=== PATIENT | male | born 1945 | race Caucasian/White ===

== ENCOUNTER → 2022-09-17 | Outpatient (CLI) | payer MEDICARE, BC, OTHER | LOC: M PLARAD 10:41 | PROVIDERS: ATTEND Psychiatry & Neurology Neurology | DX: R25.1 Tremor, unspecified (principal) ==

== ENCOUNTER 2023-10-13 18:24 | Inpatient (IN) | payer MEDICARE, BC, OTHER ==
[~2023-10-13] VITALS: Ht 172.7 cm; Wt 94.0 kg
[2023-10-13 23:05] VITALS: BP 174/96; TEMP 97.4; O2SAT 98
[2023-10-13] MEDS ORDERED: LEVALBUTEROL 1.25MG 0.5ML CONCENTRATE NEB NEB PRN (23:25)
[2023-10-13] MEDS ORDERED: ACETAMINOPHEN TAB 650MG DOSE (2X325MG) PO PRN (23:25)
[2023-10-13] MEDS ORDERED: KETOROLAC 30 MG/ML 1ML VIAL IV SCH (23:25)
[2023-10-13] MEDS ORDERED: PERCOCET 5MG/325MG TAB PO PRN ×2 (23:25)
[2023-10-13] MEDS ORDERED: BISACODYL 10MG SUPP PR PRN (23:25)
[2023-10-13] MEDS ORDERED: ONDANSETRON 4MG 2ML VIAL IV PRN (23:25)
[2023-10-13] MEDS ORDERED: HEPARIN SOD (PORCINE) 5000UNITS/ML 1ML VIAL/SYRINGE SC SCH (23:25)
[2023-10-13 23:35] VITALS: BP 187/124; O2SAT 97
[2023-10-13 23:45] VITALS: BP 195/100; O2SAT 97
[2023-10-14] VITALS (15 sets, daily range): BP systolic 126–203; BP diastolic 71–116; TEMP 97.3–98.4; O2SAT 94–98
[2023-10-14 00:18] LABS: BASO # 0.1 10^3/uL (0.0-0.2); BASO % 0.9 % (0.0-1.0); EOS # 0.2 10^3/uL (0.0-0.5); EOS % 3.1 % (0.0-3.0); HEMATOCRIT 39.2 % (42.0-52.0); LYMPH # 1.5 10^3/uL (1.5-5.0); MEAN CORPUSCULAR HEMOGLOBIN 28.7 pg (27.0-33.0); MEAN CORPUSCULAR HGB CONC 33.2 g/dl (32.0-36.5); MEAN CORPUSCULAR VOLUME 86.5 fl (80.0-96.0); MONO # 0.7 10^3/uL (0.0-0.8); MONO % 9.9 % (2.0-8.0); NEUTROPHILS # 4.3 10^3/uL (1.5-8.5); NEUTROPHILS % 62.9 % (36.0-66.0); PLATELET COUNT, AUTOMATED 207 10^3/uL (150-450); RED BLOOD COUNT 4.53 10^6/uL (4.30-6.10); WHITE BLOOD COUNT 6.9 10^3/uL (4.0-10.0)
[2023-10-14 00:22] LABS: ALBUMIN 3.5 G/DL (3.2-5.2); ALKALINE PHOSPHATASE 66 U/L (46-116); ALT/SGPT < 9 U/L (7.0-40); AST/SGOT 12 U/L (<34); BILIRUBIN,TOTAL 0.6 MG/DL (0.3-1.2); BLOOD UREA NITROGEN 9 MG/DL (9-23); CALCIUM LEVEL 8.7 MG/DL (8.3-10.6); CARBON DIOXIDE LEVEL 29 MMOL/L (20-31); CHLORIDE LEVEL 106 MMOL/L (98-107); GLOMERULAR FILTRATION RATE > 60.0 (>42); GLUCOSE, FASTING 108 MG/DL (74-106); POTASSIUM SERUM 3.8 MMOL/L (3.5-5.1); SODIUM LEVEL 139 MMOL/L (136-145); TOTAL PROTEIN 6.3 G/DL (5.7-8.2)
[2023-10-14] MEDS: LEVALBUTEROL 1.25MG 0.5ML CONCENTRATE NEB NEB SCH (01:04)
[2023-10-14] MEDS: KCL 20MEQ IN D5/NS 1000ML 1,000 ML IV SCH (01:06)
[2023-10-14] MEDS ORDERED: FERR325T3 PO (01:11)
[2023-10-14] MEDS ORDERED: RANO500T2 PO (01:11)
[2023-10-14] MEDS ORDERED: AMIO200T49 PO (01:11)
[2023-10-14] MEDS ORDERED: TAMS1CAP17 PO (01:11)
[2023-10-14] MEDS ORDERED: ELIQ5TAB PO (01:11)
[2023-10-14] MEDS ORDERED: BENA1TAB24 PO (01:11)
[2023-10-14 04:59] LABS: BASO % 0.5 % (0.0-1.0); EOS # 0.2 10^3/uL (0.0-0.5); EOS % 3.4 % (0.0-3.0); HEMATOCRIT 37.9 % (42.0-52.0); HEMOGLOBIN 12.7 g/dl (13.5-17.5); LYMPH # 1.3 10^3/uL (1.5-5.0); MEAN CORPUSCULAR HEMOGLOBIN 28.5 pg (27.0-33.0); MEAN CORPUSCULAR HGB CONC 33.5 g/dl (32.0-36.5); MEAN CORPUSCULAR VOLUME 85.2 fl (80.0-96.0); MONO # 0.7 10^3/uL (0.0-0.8); MONO % 11.7 % (2.0-8.0); NEUTROPHILS # 3.9 10^3/uL (1.5-8.5); NEUTROPHILS % 63.2 % (36.0-66.0); PLATELET COUNT, AUTOMATED 181 10^3/uL (150-450); RED BLOOD COUNT 4.45 10^6/uL (4.30-6.10); WHITE BLOOD COUNT 6.2 10^3/uL (4.0-10.0)
[2023-10-14 05:18] LABS: BLOOD UREA NITROGEN 10 MG/DL (9-23); CALCIUM LEVEL 8.6 MG/DL (8.3-10.6); CARBON DIOXIDE LEVEL 31 MMOL/L (20-31); CHLORIDE LEVEL 106 MMOL/L (98-107); CREATININE FOR GFR 0.89 MG/DL (0.70-1.30); GLOMERULAR FILTRATION RATE > 60.0 (>42); GLUCOSE, FASTING 115 MG/DL (74-106); POTASSIUM SERUM 3.8 MMOL/L (3.5-5.1); SODIUM LEVEL 140 MMOL/L (136-145)
[2023-10-14 05:40] LABS: ABG BASE EXCESS 3.2 (-2.0-2.0); ABG HCO3 27.8 MMOL/L (22.0-26.0); ABG O2 SATURATION 93.9 % (95.0-99.0); ABG PARTIAL PRESSURE CO2 42.8 mmHg (35.0-45.0); ABG PARTIAL PRESSURE O2 69.1 mmHg (75.0-100.0); ABG STANDARD HCO3 27.2 MMOL/L. (22.0-26.0); ABG TOTAL CO2 29.1 MMOL/L (23.0-31.0); ABG pH (ARTERIAL) 7.431 UNITS (7.350-7.450)
[2023-10-14] MEDS ORDERED: BENA-8 PO (06:37)
[2023-10-14] MEDS ORDERED: EZET10TA58 PO (06:37)
[2023-10-14] MEDS ORDERED: GABA-282 PO (06:37)
[2023-10-14] MEDS ORDERED: ASPI-615 PO (06:37)
[2023-10-14] MEDS ORDERED: VITA100093 PO (06:37)
[2023-10-14] MEDS ORDERED: CARV12.5 PO (06:37)
[2023-10-14] MEDS ORDERED: PROP20TA72 PO (06:37)
[2023-10-14] MEDS ORDERED: NAPR-885 PO (06:37)
[2023-10-14] MEDS ORDERED: OMEP-173 PO (06:37)
[2023-10-14] MEDS ORDERED: HOME MED LIST COMPLETE! XX SCH (06:45)
[2023-10-14] MEDS: CARVedilol 12.5 MG TAB PO SCH (08:31)
[2023-10-14] MEDS: APIXABAN 5 MG TAB (ELIQUIS) PO SCH (08:31)
[2023-10-14] MEDS: TAMSULOSIN 0.4 MG CAP PO SCH (08:37)
[2023-10-14] MEDS: EZETIMIBE 10MG TABLET (ZETIA) PO SCH (08:38)
[2023-10-14] MEDS: PANTOPRAZOLE 40MG TAB (PROTONIX) PO SCH (08:38)
[2023-10-14] MEDS: BENAZEPRIL 20 MG TAB PO SCH (08:39)
[2023-10-14] MEDS: GABAPENTIN 300 MG CAP PO SCH (08:39)
[2023-10-14] MEDS: ASPIRIN 81MG ENTERIC TABLET PO SCH (08:39)
[2023-10-14] MEDS: MOM 30ML SUSPENSION UDC PO SCH (08:40)
[2023-10-14] MEDS: RANOLAZINE 500MG ER TAB PO SCH (08:40)
[2023-10-14] MEDS: PROPRANOLOL 20 MG TAB PO SCH (08:40)
[2023-10-14] MEDS: DOCUSATE SODIUM 100MG CAPSULE PO SCH (08:40)
[2023-10-14] MEDS ORDERED: AMIODARONE 200 MG TAB (PACERONE) PO SCH (09:00)
[2023-10-14] MEDS ORDERED: BENAZEPRIL 5MG TAB PO SCH (09:00)
[2023-10-14 11:29] LABS: FREE T4 1.12 NG/DL (0.89-1.76); THYROID STIMULATING HORMONE 6.687 uIU/ML (0.55-4.78)
[2023-10-14] MEDS: COLCHICINE 0.6 MG TABLET PO ONE (11:43)
[2023-10-14 11:54] LABS: RHEUMATOID FACTOR QUANT 8.9 IU/ML (<14)
[2023-10-14 14:03] LABS: FREE T3 2.5 PG/ML (2.3-4.2)
[2023-10-14] MEDS: amLODIPine 5 MG TAB PO ONE (16:27)
[2023-10-15] VITALS (7 sets, daily range): BP systolic 124–149; BP diastolic 71–84; TEMP 96.8–98.5; O2SAT 95–96
[2023-10-15 05:48] LABS: BASO # 0.1 10^3/uL (0.0-0.2); BASO % 0.7 % (0.0-1.0); EOS # 0.2 10^3/uL (0.0-0.5); EOS % 2.2 % (0.0-3.0); HEMATOCRIT 37.5 % (42.0-52.0); HEMOGLOBIN 12.5 g/dl (13.5-17.5); LYMPH # 1.1 10^3/uL (1.5-5.0); LYMPH % 14.8 % (24.0-44.0); MEAN CORPUSCULAR HGB CONC 33.3 g/dl (32.0-36.5); MEAN CORPUSCULAR VOLUME 83.9 fl (80.0-96.0); MONO # 0.8 10^3/uL (0.0-0.8); MONO % 10.7 % (2.0-8.0); NEUTROPHILS # 5.2 10^3/uL (1.5-8.5); NEUTROPHILS % 71.2 % (36.0-66.0); PLATELET COUNT, AUTOMATED 196 10^3/uL (150-450); RED BLOOD COUNT 4.47 10^6/uL (4.30-6.10); WHITE BLOOD COUNT 7.4 10^3/uL (4.0-10.0)
[2023-10-15 06:16] LABS: BLOOD UREA NITROGEN 10 MG/DL (9-23); CALCIUM LEVEL 8.5 MG/DL (8.3-10.6); CARBON DIOXIDE LEVEL 30 MMOL/L (20-31); CHLORIDE LEVEL 106 MMOL/L (98-107); CREATININE FOR GFR 1.02 MG/DL (0.70-1.30); GLOMERULAR FILTRATION RATE > 60.0 (>42); GLUCOSE, FASTING 106 MG/DL (74-106); POTASSIUM SERUM 3.9 MMOL/L (3.5-5.1); SODIUM LEVEL 140 MMOL/L (136-145)
[2023-10-15] MEDS ORDERED: SYNT25TA PO (10:40)
[2023-10-15 10:56] LABS: FREE T4 1.09 NG/DL (0.89-1.76)
[2023-10-15 10:57] LABS: THYROID STIMULATING HORMONE 7.822 uIU/ML (0.55-4.78)
[2023-10-15 10:59] LABS: FREE THYROXINE INDEX 4.9 % (1.4-3.8); T UPTAKE 44.5 % (22.5-37.0); THYROID PEROXIDASE ANTIBODY 40 U/ML (<60.0); THYROXINE (T4) 10.9 UG/DL (4.5-10.9)
[2023-10-15 11:00] LABS: FREE T3 2.6 PG/ML (2.3-4.2)
[2023-10-15] MEDS ORDERED: COLC0.6T47 PO (11:22)
[2023-10-15] MEDS ORDERED: ENTR1TAB PO (11:27)
[2023-10-15] MEDS ORDERED: FARX1TAB3 PO (11:34)
[2023-10-15] MEDS ORDERED: ALDA25TA2 PO (11:34)
[2023-10-15] MEDS: DAPAGLIFLOZIN PROPANEDIOL 10MG TABLET (FARXIGA) PO SCH (14:12)
[2023-10-15] MEDS: COLCHICINE 0.6 MG TABLET PO SCH (14:12)
[2023-10-15] MEDS: SPIRONOLACTONE 6.25 MG PER 1/4 TAB PO SCH (14:12)
[2023-10-15] MEDS: CARVedilol 6.25 MG TAB PO ONE (15:31)
[2023-10-15 23:15] LABS: ANA (HEP2) Negative (.)
[2023-10-16 04:49] VITALS: BP 126/74; TEMP 98.4; O2SAT 92
[2023-10-16 06:43] LABS: BASO % 0.5 % (0.0-1.0); EOS # 0.1 10^3/uL (0.0-0.5); EOS % 1.7 % (0.0-3.0); HEMATOCRIT 38.8 % (42.0-52.0); LYMPH # 1.1 10^3/uL (1.5-5.0); LYMPH % 14.8 % (24.0-44.0); MEAN CORPUSCULAR HGB CONC 33.5 g/dl (32.0-36.5); MEAN CORPUSCULAR VOLUME 83.4 fl (80.0-96.0); MONO # 0.9 10^3/uL (0.0-0.8); NEUTROPHILS # 5.3 10^3/uL (1.5-8.5); NEUTROPHILS % 70.9 % (36.0-66.0); PLATELET COUNT, AUTOMATED 218 10^3/uL (150-450); RED BLOOD COUNT 4.65 10^6/uL (4.30-6.10); WHITE BLOOD COUNT 7.5 10^3/uL (4.0-10.0)
[2023-10-16 07:04] LABS: BLOOD UREA NITROGEN 15 MG/DL (9-23); CALCIUM LEVEL 8.8 MG/DL (8.3-10.6); CARBON DIOXIDE LEVEL 29 MMOL/L (20-31); CHLORIDE LEVEL 105 MMOL/L (98-107); CREATININE FOR GFR 1.14 MG/DL (0.70-1.30); GLOMERULAR FILTRATION RATE > 60.0 (>42); GLUCOSE, FASTING 107 MG/DL (74-106); POTASSIUM SERUM 4.1 MMOL/L (3.5-5.1); SODIUM LEVEL 140 MMOL/L (136-145)
[2023-10-16] MEDS ORDERED: COLC0.6T47 PO (08:39)
[2023-10-16 08:45] VITALS: BP 121/63
[2023-10-16] MEDS: COLCHICINE 0.6 MG TABLET PO SCH (08:45)
[2023-10-16] MEDS ORDERED: ENTRESTO 24-26MG TABLET (SACUBITRIL/VALSARTAN) PO SCH (21:00)
== END 2023-10-16 11:35 | disposition home or self-care (01) | DRG 315 ==
LOC: M ICU 23:18 → M MSPAV 10-15 15:43
PROVIDERS: ADMIT Internal Medicine Pulmonary Disease; ATTEND General Practice
PROC: B246ZZZ Ultrasonography of Right and Left Heart (ICD-10-PCS; principal; 2023-10-14)
DX: I31.39 Other pericardial effusion (noninflammatory) (principal); I50.22 Chronic systolic (congestive) heart failure; I48.20 Chronic atrial fibrillation, unspecified; J98.11 Atelectasis; I25.10 Atherosclerotic heart disease of native coronary artery without angina pectoris; I11.0 Hypertensive heart disease with heart failure; K21.9 Gastro-esophageal reflux disease without esophagitis; E78.5 Hyperlipidemia, unspecified; E06.9 Thyroiditis, unspecified; N40.0 Benign prostatic hyperplasia without lower urinary tract symptoms; Z95.0 Presence of cardiac pacemaker; Z79.01 Long term (current) use of anticoagulants; Z79.899 Other long term (current) drug therapy; Z79.82 Long term (current) use of aspirin; I25.2 Old myocardial infarction

== ENCOUNTER → 2024-05-10 | Outpatient (CLI) | payer BC, MEDICARE, OTHER ==
[~2024-05-10] MED LIST: ALDA25TA2 PO; AMIO200T49 PO; ASPI-615 PO; BENA-8 PO; BENA1TAB24 PO; CARV12.5 PO; COLC0.6T47 PO; ELIQ5TAB PO; ENTR1TAB PO; EZET10TA58 PO; FARX1TAB3 PO; FERR325T3 PO; GABA-1172 PO; NAPR-885 PO; OMEP-173 PO; PROP20TA72 PO; RANO500T2 PO; SYNT25TA PO; TAMS1CAP17 PO; VITA100093 PO
== END ==
LOC: M PAIN 13:00
PROVIDERS: ATTEND Nurse Practitioner Family
DX: M96.1 Postlaminectomy syndrome, not elsewhere classified (principal); M79.18 Myalgia, other site; G89.29 Other chronic pain; E78.5 Hyperlipidemia, unspecified; M54.50 Low back pain, unspecified; I25.10 Atherosclerotic heart disease of native coronary artery without angina pectoris; D64.9 Anemia, unspecified; I10 Essential (primary) hypertension; R73.03 Prediabetes; F43.10 Post-traumatic stress disorder, unspecified; F41.9 Anxiety disorder, unspecified; F32.A Depression, unspecified; I48.91 Unspecified atrial fibrillation; M54.2 Cervicalgia; Z79.01 Long term (current) use of anticoagulants; Z79.890 Hormone replacement therapy; Z79.82 Long term (current) use of aspirin; Z79.899 Other long term (current) drug therapy; Z88.5 Allergy status to narcotic agent

== ENCOUNTER → 2024-07-02 | Outpatient (CLI) | payer BC, MEDICARE, OTHER | LOC: M PAIN 14:30 | PROVIDERS: ATTEND Nurse Practitioner Family | DX: M79.10 Myalgia, unspecified site (principal); M96.1 Postlaminectomy syndrome, not elsewhere classified; E78.5 Hyperlipidemia, unspecified; M54.50 Low back pain, unspecified; G89.29 Other chronic pain; I25.10 Atherosclerotic heart disease of native coronary artery without angina pectoris; D64.9 Anemia, unspecified; I10 Essential (primary) hypertension; R73.03 Prediabetes; F32.A Depression, unspecified; F41.9 Anxiety disorder, unspecified; I48.91 Unspecified atrial fibrillation; Z79.01 Long term (current) use of anticoagulants; Z79.890 Hormone replacement therapy; Z79.899 Other long term (current) drug therapy ==

== ENCOUNTER → 2024-07-05 | Outpatient (CLI) | payer BC, MEDICARE, OTHER ==
[~2024-07-05] MED LIST changes: +TRIAMCINOLONE ACETONIDE SUSP 40MG/ML 1ML VIAL As Ordered ONE
== END ==
LOC: M PAIN 10:00
PROVIDERS: ATTEND Anesthesiology
DX: M79.18 Myalgia, other site (principal); G89.29 Other chronic pain; M54.50 Low back pain, unspecified; I25.10 Atherosclerotic heart disease of native coronary artery without angina pectoris; L40.9 Psoriasis, unspecified; D64.9 Anemia, unspecified; I10 Essential (primary) hypertension; R73.03 Prediabetes; F43.10 Post-traumatic stress disorder, unspecified; F32.A Depression, unspecified; G47.00 Insomnia, unspecified; M54.2 Cervicalgia; I48.91 Unspecified atrial fibrillation; Z79.890 Hormone replacement therapy; Z79.01 Long term (current) use of anticoagulants; Z79.82 Long term (current) use of aspirin; Z79.899 Other long term (current) drug therapy; Z88.5 Allergy status to narcotic agent
CPT/HCPCS: 20552; 77002; J0665; J3301